=== PATIENT | female | born 1965 | race Caucasian/White ===

== ENCOUNTER 2024-03-27 17:15 | Emergency (ER) | payer OTHER, SELFPAY ==
[2024-03-27 17:24] VITALS: BP 118/72; PULSE 72; RESP 18; TEMP 36.8; O2SAT 100; BMI 23.3
[2024-03-27 17:42] LABS: Coronavirus 19, PCR Not Detected (NotDetected); Influenza B, PCR Not Detected (NotDetected)
[2024-03-27 18:09] LABS: Influenza A, PCR Detected (NotDetected)
--- NOTE | 2024-03-27 18:14 | ED_ITS ---
<Statement entered by Tung Anderson MD - 03/27/24 22:55> I was consulted by the PEG, and we discussed the complexity of problems being addressed. I approved the treatment and management plan for this patient's care in the emergency department, thus performing a substantial portion of the medical decision making. Tung Anderson MD Discharge Plan Disposition Patient Disposition: Home, Self-Care Condition: Good Prescriptions Prescriptions: New azithromycin 500 mg tablet See Rx Instructions .ROUTE .COMPLEX Qty: 9 0RF Rx Instructions: For 250 mg dose pack: take 500 mg today (day 1), then 250 mg for 4 days (days 2-5) amoxicillin-pot clavulanate 875-125 mg tablet 1 tab PO BID Qty: 20 0RF Referrals Follow up/Referrals: Antonio Palma MD [Primary Care Provider] - See instructions Activity Restrictions/Add. Instructions Additional Instructions/Restrictions: Please take your antibiotics as directed. You will need to follow-up with your primary care provider within 2 to 3 days. Return to the ED for any worsening of your condition. Increase your fluid intake. Clinical Impressions Clinical Impression: Pneumonia, Abdominal pain Instructions Patient Instructions: DI for Low Back Pain Print Language Print Language: Kazakh Discharge ED Provider: Tung Anderson General Adult HPI General Chief complaint: Back Pain/Injury Stated complaint: lower right side pain, cough, body aches Time Seen by Provider: 03/27/24 18:17 Mode of Arrival: Ambulatory Source of Information: Patient Limitations: No Limitations Description of Symptoms (Recalled from ER Triage Doc. by RN): Patient presents with right flank and back pain. States she has had this pain for months. States she sought treatment at a PCP office but was not given a diagnosis. States she started feeling generally ill on . Endorses cough and nausea. Denies diarrhea and vomiting. States she had a very dark stool this morning. Denies any urinary symptoms. History of Present Illness HPI narrative: 58-year-old female who presents to the ED with complaints of right lower quadrant pain. Patient states she was recently diagnosed with influenza and her cough is making her right lower quadrant pain worse. Patient denies dysuria. Related Data Previous Rx's ?Medication ?Instructions ?Recorded amoxicillin 875 mg-potassium 1 tab PO BID #20 tabs 03/27/24 clavulanate 125 mg tablet azithromycin 500 mg tablet See Rx Instructions PO .COMPLEX #9 03/27/24 tabs Allergies Allergy/AdvReac Type Severity Reaction Status Date / Time morphine Allergy Rash Verified 03/27/24 17:33 fentanyl AdvReac Headache Verified 03/27/24 17:33 NSAIDS (Non-Steroidal AdvReac Other Verified 03/27/24 17:33 Anti-Inflamma [facility] Disclaimer: The information contained in this section may have been updated after the patient was seen, as this information can be updated by other users. Social History Smoking Status: Current every day smoker alcohol intake: never current occupational status: employed Travel in the last 8 weeks: None ROS Obtained: Yes Systems reviewed as appropriate & no additional complaints except as documented Physical Exam General General appearance: alert and in no apparent distress Head Head exam: atraumatic and normocephalic Eye Eye exam: Present normal appearance and PERRL ENT ENT exam: Present normal exam Neck Neck exam: Present normal inspection Chest Chest inspection: Present normal inspection and symmetric chest wall rise; Absent tenderness Respiratory Respiratory exam: Present normal lung sounds bilaterally Cardiovascular Cardiovascular exam: Present regular rate Abdominal Exam Abdominal exam: Present soft, tenderness (Right lower quadrant) and normal bowel sounds Extremities Exam Extremities exam: Present normal inspection and full ROM Back Exam Back exam: Present normal inspection and full ROM Neurological Exam Neurological exam: Present alert and oriented X3 Psychiatric Psychiatric exam: Present normal affect and normal mood Skin Skin exam: Present warm and dry Medical Decision Making Medical Records Screening: Per USPSTF and CDC recommendations, given the prevalence of disease in our region, it is our hospital?s policy to screen for HIV and viral Hepatitis for all patients aged 18 and over and those with ongoing risk factors. Marcello Inquiry Pt receiving controlled substance: No Vital Signs: 03/27/24 17:24 03/27/24 18:56 Temperature 98.2 F Temperature Source Oral Pulse Rate 82 Pulse Rate [Radial] 72 Respiratory Rate 18 18 Blood Pressure 139/77 Blood Pressure [R Arm] 118/72 Blood Pressure Mean [R Arm] 87 02 Sat by Pulse Oximetry 100 98 Oxygen Delivery Method Room Air Room Air Lab Data Lab Results 03/27/24 17:35: SARS-CoV-2 (PCR) Not detected, Influenza A Untype (PCR) Detected A, Influenza Type B (PCR) Not detected 03/27/24 18:33: WBC 10.0, RBC 4.19 L, Hgb 10.2 L, Hct 31.8 L, MCV 75.9 L, MCH 24.3 L, MCHC 32.1, RDW 15.3, Plt Count 209, MPV 9.6, Neut % (Auto) 82.8 H, Lymph % (Auto) 11.8, Henderson % (Auto) 4.3, Eos % (Auto) 0.2, Baso % (Auto) 0.2, Neut # (Auto) 8.3 H, Lymph # (Auto) 1.2, Henderson # (Auto) 0.4, Eos # (Auto) 0.0, Baso # (Auto) 0.0, Sodium 125 L, Potassium 3.6, Chloride 94 L, Carbon Dioxide 22, Anion Gap 12.6, BUN 26 H, Creatinine 1.10 H, Estimated Creat Clear 57, Estimated GFR 51 L, Est GFR ( Amer) 62, Glucose 103 H, Calcium 8.8, Total Bilirubin 0.1 L, AST 27, ALT 14, Alkaline Phosphatase 96, Total Protein 6.8, Albumin 4.3, Globulin 2.5, Albumin/Globulin Ratio 1.7, Lipase 53 03/27/24 18:50: Urine Color Yellow, Urine Appearance Clear, Urine pH 6.0, Ur Specific Seguin 1.015, Urine Protein Negative, Urine Glucose (UA) Negative, Urine Ketones Negative, Urine Blood 1+ A, Urine Nitrate Negative, Urine Bilirubin Negative, Urine Urobilinogen 0.2, Ur Leukocyte Esterase Negative, Urine RBC 3-5, Urine WBC None, Ur Squamous Epith Cells None, Urine Bacteria None, Urine HCG, Qual Negative 03/27/24 18:33 03/27/24 18:33 Orders (Tests/Meds): ED MEDICATIONS Discontinued Medications Generic Name Dose Route Start Last Admin Trade Name Freq PRN Reason Stop Dose Admin Hydromorphone HCl 1 mg 03/27/24 18:18 03/27/24 18:46 Hydromorphone 4 Mg/Ml Syringe IV 03/27/24 18:19 1 mg ONCE ONE Administration Lactated Ringer's 1,000 mls @ 999 mls/hr 03/27/24 18:20 03/27/24 18:46 Lactated Ringer's 1000 Ml Bag IV 03/27/24 19:20 999 mls/hr .Q1H1M ONE Administration Iopamidol 75 ml 03/27/24 18:37 02/02/25 18:39 Iopamidol-370 (76%);100ml Bottle IV 03/27/24 18:38 75 ml ONCE ONE Administration Ondansetron HCl 4 mg 03/27/24 18:18 03/27/24 18:46 Ondansetron 4mg/2ml Vial IV 03/27/24 18:19 4 mg ONCE ONE Administration Sodium Chloride 10 ml 03/27/24 18:37 03/27/24 18:40 Sodium Chloride 0.9% 10ml Syr (Rad Only) IV 03/27/24 18:38 10 ml ONCE ONE Administration ORDERS Category Date Time Status CT abdomen pelvis w con Stat Cat Scan 03/27/24 18:18 Completed CXR --portable [XR chest portable] Stat Exams 03/27/24 19:15 Completed CBC w/Auto Diff [Complete Blood Count Auto Diff] Stat Lab 03/27/24 18:33 Completed CMP [Comprehensive Metabolic Panel] Stat Lab 03/27/24 18:33 Completed Lipase Stat Lab 03/27/24 18:33 Completed Rapid PCR Covid and Flu A/B Stat Lab 03/27/24 17:35 Completed UA [Urinalysis and Microscopic] Stat Lab 03/27/24 18:50 Completed Urine , HCG Qual. Stat Lab 03/27/24 18:50 Completed Medical Decision Narrative: In summary, patient is a 58-year-old female PMHx HTN & hx of renal calculi who presents to the ED for complaints of right lower quadrant pain over the past 2 days, worsened today. Patient states she was recently diagnosed with influenza and has been coughing, making the right lower quadrant pain worse. Patient states this pain does not feel similar to when she had a kidney stone in the past. She denies headache, visual disturbances, posterior neck pain, chest pain, shortness of breath, vomiting, dysuria, vaginal bleeding. Patient is hemodynamically stable and afebrile upon arrival. Upon initial physical exam, patient is tearful, she has right lower quadrant abdominal tenderness. Abdomen is soft. Differential diagnosis includes appendicitis, SBO, infectious process, renal calculi, UTI, pyelonephritis, sepsis, among others Initial workup will be conducted with hematologic labs, CT of the abdomen and pelvis, urinalysis. Initial inventions include IV fluids, Zofran and Dilaudid. Initial workup reviewed by me, CBC unremarkable for leukocytosis, stable H&H. CMP remarkable for hyponatremia, sodium 125, BUN 26, creatinine 1.10, I feel this is most likely related to dehydration. Urinalysis remarkable for 1+ blood, no bacteria. Patient positive for influenza A. Final read of the chest x-ray unremarkable for any acute findings per final read. Final read of the CT abdomen and pelvis remarkable for infiltrates within the right lower lobe could represent an infectious process. No other acute abnormalities identified. Upon repeat evaluation patient had an appropriate resolution of symptoms, given this I feel that she is stable to be discharged home at this time. I discussed with her that we will treat her as a community-acquired pneumonia, will send prescription for antibiotics to the pharmacy. Discussed that she needs to follow-up with her PCP within 2 to 3 days. Discussed return precautions to the ED. patient was hemodynamically stable and ambulatory from the ED upon discharge. Critical Care Critical Care Time Critical Care Time: No
--- NOTE | 2024-03-27 18:18 | CT_ITS ---
PROCEDURE INFORMATION: Exam: CT Abdomen And Pelvis With Contrast Exam date and time: 03/27/2024 6:37 PM Age: 58 years old Clinical indication: Abdominal pain; Additional info: Rlq pain TECHNIQUE: Imaging protocol: Computed tomography of the abdomen and pelvis with contrast. Radiation optimization: All CT scans at this facility use at least one of these dose optimization techniques: automated exposure control; mA and/or kV adjustment per patient size (includes targeted exams where dose is matched to clinical indication); or iterative reconstruction. Contrast material: ISOVUE; Contrast volume: 75 ml; Contrast route: IV; COMPARISON: No relevant prior studies available. FINDINGS: Lungs: Patchy tree-in-bud nodular infiltrates within the right lower lobe incompletely evaluated but could represent consistent with aspiration bronchiolitis although other infectious or inflammatory processes not excluded.. Liver: The liver appears within normal limits. Gallbladder and biliary ducts: There has been a cholecystectomy. Pancreas: The pancreas is normal. Spleen: The spleen is normal. Adrenal glands: The adrenal glands appear within normal limits. Kidneys and ureters: The kidneys are normal. Stomach and bowel: Status post gastric bypass. Appendix: No evidence of appendicitis. Intraperitoneal space: No free air. No evidence for focal fluid collection or ascites. No evidence for omental thickening. Vasculature: Unremarkable. No abdominal aortic aneurysm. Lymph nodes: Unremarkable. No pathologically enlarged lymph nodes are identified. Urinary bladder: The bladder appears within normal limits. No wall thickening. Reproductive: There has been a hysterectomy. Bones/joints: Unremarkable. No acute fracture. Soft tissues: The visualize subcutaneous soft tissues and abdominal wall and flank wall appear unremarkable. IMPRESSION: 1. Patchy tree-in-bud nodular infiltrates within the right lower lobe incompletely evaluated but could represent consistent with aspiration bronchiolitis although other infectious or inflammatory processes not excluded.. 2. No acute abnormalities are identified.
[2024-03-27] MEDS: IOPAMIDOL-370 (76%);100ML BOTTLE 75 ML IV (18:39)
[2024-03-27] MEDS: SODIUM CHLORIDE 0.9% 10ML SYR (RAD ONLY) 10 ML IV (18:40)
[2024-03-27 18:46] LABS: Basophils % 0.2 % (0.1-2.0); Eosinophils % 0.2 % (0.1-12.0); Hematocrit 31.8 % (37.0-47.0); Hemoglobin 10.2 g/dL (12.2-16.2); Lymphocytes # 1.2 K/mm3 (0.7-4.5); Lymphocytes % 11.8 % (10-50); Mean Corpuscular HGB Conc 32.1 g/dL (31.8-35.4); Mean Corpuscular Hemoglobin 24.3 pg (27.0-31.2); Mean Corpuscular Volume 75.9 fl (81-99); Mean Platelet Volume 9.6 fl (7.4-10.4); Monocytes # 0.4 K/mm3 (0.1-1.0); Monocytes % 4.3 % (1.7-9.3); Neutrophils # 8.3 K/mm3 (1.8-7.8); Neutrophils % 82.8 % (37.0-80.0); Platelet Count 209 K/mm3 (142-424); Red Blood Count 4.19 M/mm3 (4.20-5.40); Red Cell Distribution Width 15.3 % (11.5-17.5)
[2024-03-27] MEDS: LACTATED RINGERS 1000ML 1,000 ML 999 ML IV (18:46)
[2024-03-27] MEDS: ONDANSETRON 4MG/2ML VIAL 4 MG IV (18:46)
[2024-03-27 18:53] LABS: Alanine Aminotransferase 14 U/L (12-78); Albumin Level 4.3 g/dl (3.5-5.0); Albumin/Globulin Ratio 1.7 (1.1-1.8); Alkaline Phosphatase 96 U/L (38-126); Anion Gap 12.6 mEq/L (5-15); Aspartate Amino Transferase 27 U/L (14-36); Blood Urea Nitrogen 26 mg/dl (7-17); Calcium 8.8 mg/dl (8.4-10.2); Carbon Dioxide 22 mmol/L (22.0-30.0); Chloride 94 mmol/L (98-107); Creatinine Clearance Estimated 57 mL/min (50-200); Estimated Glomerular Filt Rate 51 ml/min (>60); GFR (African American) 62 ML/MIN (>60); Globulin 2.5 g/dL (1.3-3.2); Glucose 103 mg/dl (74-100); Lipase 53 U/L (23-300); Potassium 3.6 mmoL/L (3.5-5.1); Sodium 125 mmol/L (136-145); Total Protein,Serum 6.8 g/dl (6.3-8.2)
--- NOTE | 2024-03-27 18:53 | PC.NURSE ---
urine sent to the lab
[2024-03-27 18:56] VITALS: BP 139/77; PULSE 82; RESP 18; O2SAT 98
[2024-03-27 18:57] LABS: Bilirubin,Total 0.1 mg/dl (0.2-1.3)
[2024-03-27 19:06] LABS: Microscopic, Urine URINE MICROSCOPIC (MICROSCOPIC)
[2024-03-27 19:09] LABS: Appearance,Urine CLEAR (Clear); Bilirubin,Urine Negative (Negative); Blood, Urine 1+ (Negative); Color,Urine YELLOW (Yellow); Glucose,Urine (UA) Negative (Negative); Ketones,Urine Negative (Negative); Leukocyte Esterase,Urine Negative (Negative); Nitrate,Urine Negative (Negative); Protein,Urine Negative (Negative); Specific Gravity, Urine 1.015 (1.005-1.030); Urobilinogen,Urine 0.2 EU/dl (0.2)
[2024-03-27 19:10] LABS: Urine Pregnancy, HCG Qual. Negative (Negative)
--- NOTE | 2024-03-27 19:15 | XR_ITS ---
PROCEDURE INFORMATION: Exam: XR Chest Exam date and time: 03/27/2024 7:26 PM Age: 58 years old Clinical indication: Cough; Additional info: SOA TECHNIQUE: Imaging protocol: Radiologic exam of the chest. Views: 1 view. COMPARISON: CT ABDOMEN PELVIS W CON 03/27/2024 6:37 PM FINDINGS: Lungs: Unremarkable. No consolidation. Pleural spaces: Unremarkable. No pleural effusion. No pneumothorax. Heart/Mediastinum: Unremarkable. No cardiomegaly. Bones/joints: Unremarkable. IMPRESSION: No acute findings.
[2024-03-27 21:24] VITALS: BP 145/71; PULSE 87; RESP 17; TEMP 37.1; O2SAT 98
== END 2024-03-27 21:28 | disposition home or self-care (01) ==
PROVIDERS: Nurse Practitioner; Emergency Provider Emergency Medicine; PCP Emergency Medicine
DX: J18.9 Pneumonia, unspecified organism (principal); R10.31 Right lower quadrant pain; R05.9 Cough, unspecified; M79.10 Myalgia, unspecified site; R11.0 Nausea; Z72.0 Tobacco use
CPT/HCPCS: 71045; 74177; 80053; 81001; 81025; 83690; 85025; 87636; 96361; 96374; 96375; 99285; J1171; J2405; J7120; Q9967